=== PATIENT | male | born 1940 | race Caucasian/White ===

== ENCOUNTER 2017-07-25 06:35 | Observation (INO) | payer OTHER ==
[2017-07-21 14:24] VITALS: BMI 19.0
--- NOTE | 2017-07-25 07:11 | CP.PCM.HP ---
History of Present Illness - History of Present Illness History of Present Illness: CC: L shoulder replacement HPI: This is a 77 y/o male with MHx significant for HTN, CVA (some L sided weakness), and prior esophageal cancer who comes in for scheduled L shoulder replacement. Patient denies any CP or SOB. He denies f/c/n/v/d. Has no other c/ c at this time. Medical clearance is in the chart by Dr. Mg Kuhn Labs/EKG/CXR info in chart. EKG showed NSR. CXR showed no active CP disease, R portacath. ROS: 14 systems reviewed, negative other than HPI MHx: HTN, Hx CVA, Hx esophageal ca SHx: Surgery for esophageal ca Allergies: NKDA Medications: as per med list Family Hx: Reviewed, no findings Social Hx: Lives with family, no tobacco currently, no EtOH Present on Admission - Present on Admission Any Indicators Present on Admission: No Past Patient History - Past Medical History & Family History Past Medical History?: Yes - Past Social History Smoking Status: Never Smoked - CARDIAC Hx Cardiac Disorders: Yes Hx Hypertension: Yes - PULMONARY Hx Respiratory Disorders: No - NEUROLOGICAL Hx Neurological Disorder: Yes Other/Comment: STROKE 5-6 YRS AGO - HEENT Hx HEENT Problems: Yes Hx Cataracts: Yes - RENAL Hx Chronic Kidney Disease: No - ENDOCRINE/METABOLIC Hx Endocrine Disorders: No - HEMATOLOGICAL/ONCOLOGICAL Hx Blood Disorders: No - INTEGUMENTARY Hx Dermatological Problems: No - MUSCULOSKELETAL/RHEUMATOLOGICAL Hx Musculoskeletal Disorders: Yes Hx Arthritis: Yes Other/Comment: LIMIT JOINT MOTION LEFT SHOULDER - GASTROINTESTINAL Hx Gastrointestinal Disorders: Yes Other/Comment: HX OF STOMACH CA - GENITOURINARY/GYNECOLOGICAL Hx Genitourinary Disorders: No - PSYCHIATRIC Hx Psychophysiologic Disorder: No - SURGICAL HISTORY Hx Surgeries: Yes Hx Cataract Extraction: Yes Other/Comment: PARTIAL GASTERECTOMY - ANESTHESIA Hx Anesthesia: Yes Hx Anesthesia Reactions: No Hx Malignant Hyperthermia: No Has any member of the family had a problem w/ anesthesia?: No Meds Allergies/Adverse Reactions: Allergies Allergy/AdvReac Type Severity Reaction Status Date / Time No Known Allergies Allergy Verified 07/21/17 14:24 Physical Exam - Constitutional Appears: No Acute Distress - Head Exam Head Exam: ATRAUMATIC, NORMOCEPHALIC - Eye Exam Eye Exam: EOMI, PERRL - ENT Exam ENT Exam: Mucous Membranes Moist - Neck Exam Neck exam: Positive for: Full Rom - Respiratory Exam Respiratory Exam: Clear to Auscultation Bilateral, NORMAL BREATHING PATTERN - Cardiovascular Exam Cardiovascular Exam: REGULAR RHYTHM, +S1, +S2 - GI/Abdominal Exam GI & Abdominal Exam: Normal Bowel Sounds, Soft - Extremities Exam Extremities exam: Positive for: normal inspection Additional comments: limited ROM of L shoulder; some weakness on R side (chronic) - Neurological Exam Neurological exam: Alert, CN II-XII Intact, Oriented x3 - Psychiatric Exam Psychiatric exam: Normal Affect, Normal Mood - Skin Skin Exam: Dry, Warm Results - Vital Signs Recent Vital Signs: Last Vital Signs Temp 97.5 F L 07/25/17 07:05 Pulse 70 07/25/17 07:05 Resp 18 07/25/17 07:05 BP 121/61 07/25/17 07:05 Pulse Ox 97 07/25/17 07:05 Assessment & Plan (1) Aftercare following left shoulder joint replacement surgery Assessment and Plan: 77 y/o male presenting for scheduled L shoulder replacement surgery. 1) L shoulder rep -standard post op care 2) HTN -- resume home medications after surgery 3) DVT PPx -- begin lovenox when cleared from orthopedic standpoint Status: Acute (2) HTN (hypertension) Status: Acute (3) DVT prophylaxis Status: Acute
[2017-07-25] MEDS ORDERED: Ropivacaine 0.5% 30ML IV ONE (07:23)
[2017-07-25] MEDS ORDERED: Etomidate 20 mg/10ml Inj IV ONE (07:25)
[2017-07-25] MEDS ORDERED: Lidocaine 4% (Laryng-O-Jet) Kit MM ONE (07:25)
[2017-07-25] MEDS ORDERED: Succinylcholine 200 mg/10 ml Inj IV ONE (07:25)
[2017-07-25] MEDS ORDERED: Rocuronium 10 mg/ml (5 ml) ONE (07:25)
[2017-07-25] MEDS ORDERED: Propofol 10 mg/ml Inj (20 ML) ONE (07:29)
[2017-07-25] MEDS ORDERED: EPINEPHrine 1 mg/ml (1:1000) Inj ONE (07:40)
[2017-07-25] MEDS ORDERED: Thrombin Topical 5,000 IU Spray Kit ONE (07:42)
[2017-07-25] MEDS ORDERED: Absorbable Gelatin Sponge Size 100 ONE (07:42)
[2017-07-25] MEDS ORDERED: Lactated Ringer's 1,000 ML IV ONE (07:45)
[2017-07-25] MEDS ORDERED: Midazolam 2 MG/2 ML VIAL ONE (07:50)
[2017-07-25] MEDS ORDERED: Sevoflurane - Inhalation Anesthetic Liq (250 ml) ONE (08:20)
[2017-07-25] MEDS ORDERED: Sodium Chloride 0.9% 1,000 ML IV ONE ×2 (09:55→10:00)
[2017-07-25] MEDS ORDERED: Neostigmine Methylsulfate 3mg/3ml Syringe IV ONE (10:33)
[2017-07-25] MEDS ORDERED: HYDROmorphone 0.5 mg/0.5 ml ISec IVP PRN (11:01)
[2017-07-25] MEDS ORDERED: Dexamethasone 4 mg/1 ml IVP PRN (11:01)
--- NOTE | 2017-07-25 11:01 | PCM.ANESB1 ---
Interscalene Block - Brachial Plexus Date of Procedure: 07/25/17 Anesthesiologist: Rock Pre-Procedure Diagnosis: Left total shoulder replacement Post-Procedure Diagnosis: Same Procedure Performed: Interscalene Block of Brachial Plexus Left - Procedure Interscalene Block of Brachial Plexus: This procedure was explained to the patient that it is for post-operative pain management. Consent was obtained after a thorough discussion with the patient regarding the benefits and possible complications of local anesthetic block of the Brachial Plexus at the Interscalene area. The patient was brought to the Operating Room and standard monitors were applied. Time out was held with the circulating nurse to confirm the correct surgery and appropriate block. After applying Oxygen by nasal cannula and administering IV Sedation, the patient's head was gently rotated away from the __left____operative shoulder and the anterior scalene groove was carefully palpated. The ultrasound transducer was then applied to the skin in the transverse plane and the brachial plexus was visualized lateral to the carotid artery and in between the anterior and middle scalene muscles. After identification,the anterior lateral portion of the neck was prepped with Betadine solution three times and Lidocaine 1% was injected subcutaneously for topical analgesia. At this point, a # 22 gauge Stimuplex 2 inches insulated needle was inserted into the interscalene groove and directed in a caudal and midline direction. The needle was inserted lateral to the ultrasound transducer in-plane towards the brachial plexus in a [id number] direction. Needle advancement was performed carefully under direct ultrasound visualization. Nerve stimulator was used and twitched of the affected extremity including the hand brachialis muscles, biceps and the deltoid was obtained at a current of __0.4___MA. After repeated negative aspiration,__20___cc of__0.5%___,____bupivacaine were injected. Under ultrasound guidance the local anesthetics were observed surrounding the roots of the brachial plexus. The needle was removed intact and sterile dressing was applied. The patient had stable vital signs, was conscious and in no apparent distress. The patient tolerated the interscalene block of the bracheal plexus well with stable vital signs and was prepared for subsequent surgery.
--- NOTE | 2017-07-25 12:38 | PCM.SURG1 ---
Surgeon's Initial Post Op Note - Surgeon's Notes Surgeon: Tio Orchid Worker: CLARISSE Babcock/Zacarias Pablo Type of Anesthesia: General Endo, Block Regional Anesthesia Administered By: DR Wells Pre-Operative Diagnosis: Rotataor cuff arthritis L shoulder Operative Findings: Rotataor cuff arthritis L shoulder. biceps tendon attenuation. roator cuff tear L shoulder Post-Operative Diagnosis: as above Operation Performed: L Total shoulder Replacement. Rotator cuff repair. Biceps tenodesis Specimen/Specimens Removed: rotator cuff tendon. biceps tendon attenuation. osteoarthritis L shoulder Estimated Blood Loss: EBL {In ML}: 55 Blood Products Given: N/A Drains Used: No Drains Post-Op Condition: Good Date of Surgery/Procedure: 07/25/17 Time of Surgery/Procedure: 08:45 (time min room/anestheisa induction time 7:45)
[2017-07-25] MEDS ORDERED: Pneumococcal 23-Valent Vaccine IM ONE (16:00)
[2017-07-25] MEDS ORDERED: Influenza Vaccine 18yr & older 0.5 ML/45 MCG SYR IM ONE (16:00)
--- NOTE | 2017-07-25 16:43 | RAD ---
PROCEDURE: Left shoulder single-view HISTORY: s/p left total shoulder replacement COMPARISON: None TECHNIQUE: Standard protocol for this study/examination. FINDINGS: Satisfactory position alignment of components of the left shoulder arthroplasty. Anatomic alignment of these components common no evidence of loosening. IMPRESSION: Satisfactory postoperative status
[2017-07-25] MEDS: ceFAZolin 1 GM in Sodium Chloride 0.9% 100 ML IVPB SCH ×2 (17:28→17:46)
[2017-07-25] MEDS ORDERED: ceFAZolin 1 GM in Sodium Chloride 0.9% 100 ML IVPB SCH (18:00)
[2017-07-26] MEDS: Oxycodone/Acetaminophen 5/325 mg Tab PO PRN ×2 (01:57→06:43)
[2017-07-26 06:55] LABS: HEMATOCRIT 26.3 % (35.0-51.0); MEAN CELL VOLUME 78.8 fl (80.0-94.0); MEAN CORPUSCULAR HEMOGLOBIN 25.6 pg (27.0-31.0); MEAN CORPUSCULAR HGB CONC 32.6 g/dL (33.0-37.0); RED CELL DISTRIBUTION WIDTH 17.1 % (11.5-14.5); WHITE BLOOD COUNT 4.4 K/uL (4.8-10.8)
[2017-07-26 07:06] LABS: BLOOD UREA NITROGEN 16 mg/dl (9-20); CALCIUM 8.6 mg/dL (8.4-10.2); CARBON DIOXIDE 26 mmol/L (22-30); CHLORIDE 102 mmol/L (98-107); GFR AFRICAN-AMERICAN > 60; GLUCOSE,RANDOM 99 mg/dL (75-110); POTASSIUM 3.9 MMOL/L (3.6-5.0); SODIUM 137 mmol/l (132-148)
[2017-07-26 08:16] VITALS: BP 126/68; PULSE 81; RESP 20; TEMP 98.6; O2SAT 100
--- NOTE | 2017-07-26 10:57 | CP.PCM.DIS ---
Provider - Provider Date of Admission: 07/25/17 11:28 Attending physician: Nano Chowdhury MD Primary care physician: Dragan Kinsey III, MD Consults: Ortho: Dr Kinsey Time Spent in preparation of Discharge (in minutes): 35 Diagnosis - Discharge Diagnosis (1) Status post total shoulder replacement Status: Acute (2) Aftercare following left shoulder joint replacement surgery Status: Acute (3) HTN (hypertension) Status: Chronic (4) History of CVA with residual deficit Status: Chronic (5) DVT prophylaxis Status: Acute Hospital Course - Lab Results Lab Results: Most Recent Lab Values WBC 4.4 K/uL (4.8-10.8) L 07/26/17 06:00 RBC 3.34 Mil/uL (4.40-5.90) L 07/26/17 06:00 Hgb 8.6 g/dL (12.0-18.0) L 07/26/17 06:00 Hct 26.3 % (35.0-51.0) L 07/26/17 06:00 MCV 78.8 fl (80.0-94.0) L 07/26/17 06:00 MCH 25.6 pg (27.0-31.0) L 07/26/17 06:00 MCHC 32.6 g/dL (33.0-37.0) L 07/26/17 06:00 RDW 17.1 % (11.5-14.5) H 07/26/17 06:00 Plt Count 166 K/uL (130-400) 07/26/17 06:00 Sodium 137 mmol/l (132-148) 07/26/17 06:00 Potassium 3.9 MMOL/L (3.6-5.0) 07/26/17 06:00 Chloride 102 mmol/L (98-107) 07/26/17 06:00 Carbon Dioxide 26 mmol/L (22-30) 07/26/17 06:00 Anion Gap 13 (10-20) 07/26/17 06:00 BUN 16 mg/dl (9-20) 07/26/17 06:00 Creatinine 0.8 mg/dL (0.8-1.5) 07/26/17 06:00 Est GFR ( Amer) > 60 07/26/17 06:00 Est GFR (Non-Af Amer) > 60 07/26/17 06:00 Random Glucose 99 mg/dL (75-110) 07/26/17 06:00 Calcium 8.6 mg/dL (8.4-10.2) 07/26/17 06:00 Blood Type O POSITIVE 07/25/17 07:00 Blood Type Confirm O POSITIVE 07/25/17 07:40 Antibody Screen Negative 07/25/17 07:00 Crossmatch See Detail 07/25/17 07:00 BBK History Checked No verified bt 07/25/17 07:00 - Hospital Course Hospital Course: 77 y/o gent with hx of HTN, previous CVA with some left Hemiparesis, was admitted for Left Shoulder Total Replacement . Pt has a long history of severe Left shoulder OA , failed conservative outpt mgt. No complications post op. Physical Therapy consulted - rec ALEXIS placement as pt lives alone however pt refused ALEXIS placement and wanted to go home despite explanation of benefits vs risk. Pt states he has a [employer] P[employer] OPERATOR, Home PT and RN arranged for pt . Pt was picked up by his family (1) Status post total shoulder replacement Status: Acute Ortho : Dr Kinsey Pain mgt with Percocet PT consulted (2) Aftercare following left shoulder joint replacement surgery Status: Acute Pain mgt ff up with dr Kinsey in 1 wk (3) HTN (hypertension) Status: Chronic cont GABRIEL inhibitor (4) History of CVA with residual deficit Status: Chronic some residual left hemiparesis start ASA, statin 5. Acute Blood Loss Anemia post op transfused 1 unit PRBC Ferrous sulfate started DVT prophylaxis Status: Acute ASA 81 mg bid Discharge Exam - Head Exam Head Exam: ATRAUMATIC, NORMAL INSPECTION, NORMOCEPHALIC - Eye Exam Eye Exam: EOMI, Normal appearance Pupil Exam: NORMAL ACCOMODATION - ENT Exam ENT Exam: Mucous Membranes Moist, Normal External Ear Exam - Neck Exam Neck exam: Full Rom - Respiratory Exam Respiratory Exam: NORMAL BREATHING PATTERN. absent: Respiratory Distress - Cardiovascular Exam Cardiovascular Exam: REGULAR RHYTHM, +S1, +S2 - GI/Abdominal Exam GI & Abdominal Exam: Normal Bowel Sounds, Soft. absent: Tenderness - Extremities Exam Extremities exam: normal capillary refill, pedal pulses present Additional comments: left shoulder with immobilizer, no pedal edema no calf tenderness - Back Exam Back exam: FULL ROM. absent: CVA tenderness (L), CVA tenderness (R) - Neurological Exam Neurological exam: Alert, CN II-XII Intact, Oriented x3, Reflexes Normal - Psychiatric Exam Psychiatric exam: Normal Affect, Normal Mood - Skin Skin Exam: Dry, Normal Color, Warm Discharge Plan - Discharge Medications Prescriptions: Aspirin [Ecotrin] 81 mg PO BID #30 Atorvastatin [Lipitor] 10 mg PO HS #30 tab Docusate [Colace] 100 mg PO BID #60 cap Famotidine [Pepcid] 20 mg PO BID #60 tab Ferrous Sulfate [Feosol] 325 mg PO BID #60 tab oxyCODONE/Acetaminophen [Percocet 5/325 mg Tab] 1 tab PO Q6 PRN #20 tab PRN Reason: Pain, Moderate (4-7) - Follow Up Plan Condition: GOOD Disposition: HOME/ ROUTINE Instructions: Shoulder Arthroplasty (DC) Additional Instructions: ff up with Dr Kinsey in 1 wk Home Physical therapy, Pt has [employer] OPERATOR ( Refused ALEXIS placement) Referrals: Dragan Kinsey III, MD [Primary Care Provider] -
--- NOTE | 2017-07-28 02:01 | OP ---
PROCEDURE DATE: 07/25/2017 PREOPERATIVE DIAGNOSES: 1. Rotator cuff arthropathy/arthritis of the left shoulder. 2. Grade-3 tear of the rotator cuff. 3. Biceps tendon attenuation. 4. Glenoid labral tear. POSTOPERATIVE DIAGNOSES: 1. Rotator cuff arthropathy/arthritis, left shoulder. 2. Grade-3 tear of the rotator cuff. 3. Biceps tendon attenuation. 4. Glenoid labral tear. OPERATIVE FINDINGS: As above. OPERATIONS PERFORMED: 1. Left total shoulder replacement arthroplasty, reverse type. 2. Rotator cuff repair. 3. Biceps tenodesis. SPECIMENS REMOVED: Rotator cuff tendon debridement; biceps tendon debridement; osteoarthritis, left shoulder. BLOOD LOSS: 55 mL. BLOOD PRODUCTS GIVEN: None. DRAINS USED: None. POSTOPERATIVE CONDITION: Good. TIME OF SURGERY: Incision time, 8:45; anesthesia induction time, 7:45. OPERATIVE PROCEDURE: The patient is a referral from Dr. Mg Kuhn who presents with severe pain and restricted range of motion of the left shoulder. The patient has been treated by Dr. Kuhn conservatively with activity modification, ice, antiinflammatory medication, and intra-articular injection. The patient can no longer withstand the discomfort. MRI examination was accomplished by Dr. Kuhn and the surgery was indicated. The patient presents for replacement arthroplasty at this time. Pros, cons, risks, and benefits of the surgical approach were discussed with the possibility of mechanical failure, infection, thromboembolic disease, stiffness, axillary nerve injury, secondary or tertiary surgery were discussed. The patient can no longer withstand the pain and wished for the surgery to be accomplished. Alternative procedures were discussed with the patient, specifically benign neglect, intra-articular injections, which had been tried and failed and arthroscopic rotator cuff repair. It was explained to the patient that because of the large nature of the rotator cuff tear, the concept of limited goals for arthroplasty was discussed and was not acceptable. The patient again can no longer withstand the pain and in discussion with the patient and his who was the culturally competent director of search engine optimization. The patient wished surgery to be accomplished, specifically the arthroplasty. The difference between anatomic and reverse shoulder arthroplasties were discussed. The concept of reverse shoulder arthroplasty for Mr. Patrick was discussed specifically because of the rotator cuff tear. OPERATIVE PROCEDURE: After having obtained informed consent in the above fashion, after having identified side, site, and procedure, and a critical pause/time-out, after the satisfactory induction of the anesthetic, the patient identified as , who was placed in the modified morris chair position. The right upper extremity was prepped in the usual fashion for upper extremity surgery. The topographic anatomy of the shoulder was marked, the lateral aspect of the clavicle, the lateral aspect of the acromion, the deltoid tuberosity. The skin incision was described from the lateral aspect of the clavicle to the point of the deltoid tuberosity. The skin incision was insufflated with the solution of 1:1000 epinephrine in 250 mL of saline. The skin incision was carried down through the skin and subcutaneous tissue. With progressive external rotation of the shoulder, the deltopectoral interval was identified. The cephalic vein was preserved and dissected. This having been accomplished, the blunt dissection was carried down in the clavipectoral fascia. The strap muscles were identified and the clavipectoral fascia was divided. The deep shoulder retractors were positioned with external rotation at approximately 1 cm lateral to the lesser tuberosity. The rotator cuff tear was identified and the rotator cuff was incised using the electrocautery with further external rotation. The biceps tendon was tenotomized. With further rotation externally, the shoulder was dislocated. This having been accomplished, the humerus having been identified, there was found to be again severe rotator cuff arthropathy with arthritis of the glenohumeral joint. At this point in time, the intramedullary cutting guide was placed and the setting was set for reverse osteotomy. The osteotomy for reverse arthroplasty was marked and was accomplished. A metal plate was placed to protect the humeral head because of the poor bony quality. At this point in time, the glenoid was exposed, glenohumeral joint arthrotomy was accomplished, and the labrum was excised. The glenoid was identified. Guide pin was introduced in the anatomic position and reaming was accomplished at this point in time with acceptable position of the guide pin, reaming over the guide pin was accomplished. The myriam was used to roughen the glenoid; this having been accomplished, the prosthetic glenoid was impacted after reaming and was held with 2 screws; 20 mm screw superiorly, 26 mm inferiorly, the small glenosphere was attached, impacted, and the screw was affixed. This having been accomplished, the attention was turned to the humeral preparation. Sequential reaming to 21 mm was accomplished. Broaching was accomplished with a 21 mm stem. The broach was found to be stable in all planes. The proximal humeral body was affixed and trailing was accomplished. Again, arthrotomy and excision of the glenoid labrum having been impacted and accomplished before introduction of the glenosphere, the humerus was prepared in the definitive manner. The construct having been stable in all planes, the reverse shoulder arthroplasty was dislocated. The trail was dislocated, it was found to be stable. The broach was removed. The definitive prosthesis was introduced with the appropriate size polyethylene insert. The hip was reduced and found to be stable in all planes. The rotator cuff repair was accomplished with the extremity in 10 degrees of internal rotation in the neutral forward flexion plane. The subscapularis tendon and remainder of the rotator cuff was repaired using interrupted fiber wire. The biceps was tenodesed to the subscapularis mass using interrupted fiber wire. The rotator cuff was repaired with interrupted fiber wire. The long head of the biceps was tenodesed using fiber wire. Irrigation was accomplished with saline and antibiotic-impregnated saline. Closure of the deltopectoral intervals with 0 Quill, followed by 0 Quill subcutaneous, Vicryl olivia for skin, shoulder immobilizer and a compression dressing was applied, and Aquacel dressing was applied and the shoulder immobilizer was applied as well. The patient was transferred from the OR table to the stretcher having tolerated the procedure well. Dragan Kinsey MD
== END 2017-07-26 13:49 | disposition home or self-care (01) ==
LOC: H.OPSURG 06:35 → H.MEDSURG1 11:28 → INTOOBSV 11:28
PROVIDERS: ADMIT Internal Medicine; ATTEND Internal Medicine
DX: M19.012 Primary osteoarthritis, left shoulder (principal); Z23 Encounter for immunization; Z85.01 Personal history of malignant neoplasm of esophagus; D62 Acute posthemorrhagic anemia; I10 Essential (primary) hypertension; I69.354 Hemiplegia and hemiparesis following cerebral infarction affecting left non-dominant side; Z79.82 Long term (current) use of aspirin; Z85.028 Personal history of other malignant neoplasm of stomach
CPT/HCPCS: 23410; 23430; 23472; 36415; 36430; 73020; 80048; 85027; 86850; 86900; 86920; 88304; 88311; 90732; 96365; 97162; C1713; C1776; G0008; G0009; G0378; G8978; G8979; J0171; J0330; J0690; J2001; J2250; J2405; J2704; J2710; J3010; J7030; J7040; J7120; P9051; Q2035